=== PATIENT | female | born 2000 | race Caucasian/White ===

== ENCOUNTER 2024-12-30 17:52 | Emergency (ER) | payer OTHER ==
[~2024-12-30] VITALS: Ht 160 cm; Wt 69.5 kg
[2024-12-30 17:59] VITALS: BP 118/79; PULSE 94; RESP 20; TEMP 100.4; O2SAT 99
[2024-12-30] MEDS ORDERED: NAPR-1197 PO (18:03)
[2024-12-30] MEDS ORDERED: IBUPROFEN 600 MG TABLET ONE (18:06)
[2024-12-30] MEDS: IBUPROFEN 600 MG TABLET PO ONE (18:07)
[2024-12-30 18:09] LABS: COVID AG,FIA SOURCE NASAL SWAB
[2024-12-30 19:12] LABS: INFLUENZA TYPE A NEGATIVE FOR TYPE A (NEGATIVE); INFLUENZA TYPE B NEGATIVE FOR TYPE B (NEGATIVE)
[2024-12-30 19:17] LABS: SARS-COV2 (COVID) ANTIGEN,FIA Positive (Negative)
[2024-12-30] MEDS ORDERED: GUAIFDM PO (19:23)
[2024-12-30] MEDS ORDERED: ACET-2080 PO (19:23)
[2024-12-30] MEDS ORDERED: IBUP-1554 PO (19:23)
== END 2024-12-30 19:53 | disposition home or self-care (01) ==
LOC: EMS 17:52
DX: U07.1 COVID-19 (principal); J06.9 Acute upper respiratory infection, unspecified; F12.90 Cannabis use, unspecified, uncomplicated; Z79.899 Other long term (current) drug therapy; Z90.89 Acquired absence of other organs
CPT/HCPCS: 87804; 99283